=== PATIENT | female | born 1935 | race Native Hawaiian/Other Pacific Islander ===

== ENCOUNTER 2022-08-13 20:32 | Emergency (ER) | payer OTHER ==
[~2022-08-13] VITALS: Ht 160 cm; Wt 86.2 kg
[2022-08-13 21:00] VITALS: TEMP 98.2
[2022-08-13 21:11] LABS: PLATELET COUNT 218 K/uL (152-353)
[2022-08-13 21:14] LABS: POTASSIUM 4.3 mmol/L (3.6-5.2)
[2022-08-13 23:06] VITALS: BP 137/63
[2022-08-14] MEDS ORDERED: ARIPIPRAZOLE2 MG PO (11:17)
[2022-08-14] MEDS ORDERED: LIPITOR40 MG PO (11:18)
[2022-08-14] MEDS ORDERED: CLOP75TA2 PO (11:20)
[2022-08-14] MEDS ORDERED: B-121000 MC5 PO (11:22)
[2022-08-14] MEDS ORDERED: DULOXETINE HYDR60 MG PO (11:27)
[2022-08-14] MEDS ORDERED: FAMOTIDINE MAXI20 MG PO (11:29)
[2022-08-14] MEDS ORDERED: GLIP10TA55 PO (11:30)
[2022-08-14] MEDS ORDERED: HYDROXYCHLOROQ100 MG PO (11:32)
[2022-08-14] MEDS ORDERED: LEVO0.1519 PO (11:33)
[2022-08-14] MEDS ORDERED: LISI10TA11 PO (11:34)
[2022-08-14] MEDS ORDERED: VITAMIN D325 MCG PO (11:35)
[2022-08-14] MEDS ORDERED: BUSPIRONE10 MG PO (11:36)
[2022-08-14] MEDS ORDERED: TRAMADOL HYDROC50 MG PO (11:37)
[2022-08-14] MEDS ORDERED: GABA300C2 PO (11:40)
[2022-08-14] MEDS ORDERED: HYDROXYCHLOR200 MG PO (11:48)
[2022-08-14] MEDS ORDERED: TYLENOL325 MG PO (11:50)
[2022-08-14] MEDS ORDERED: ACET650S18 RE (11:51)
[2022-08-14] MEDS ORDERED: ARTHRITIS PAIN RE1 % EX (11:54)
== END 2022-08-13 23:06 | disposition still patient (30) ==
LOC: ED 20:32
PROVIDERS: Internal Medicine
DX: F03.911 Unspecified dementia, unspecified severity, with agitation (principal); U07.1 COVID-19; Z04.6 Encounter for general psychiatric examination, requested by authority
CPT/HCPCS: 36415; 80053; 85027; 87635; 93005; 99283; U0003